=== PATIENT | female | born 1935 | race Caucasian/White ===

== ENCOUNTER 2018-12-29 00:23 | Inpatient (IN) | payer MEDICARE, MEDICAID ==
[~2018-12-29] VITALS: Ht 160 cm; Wt 52.8 kg
[2018-12-29] MEDS ORDERED: ACETAMINOPHEN 325 MG TABLET PO PRN (00:30)
[2018-12-29] MEDS ORDERED: BLOOD SUGAR DIAGNOSTIC 1 EACH STRIP VI ONE ×2 (00:30→06:00)
[2018-12-29] MEDS ORDERED: LORAZEPAM 0.5 MG TABLET PO PRN (00:30)
[2018-12-29] MEDS ORDERED: MAG HYDROX/AL HYDROX/SIMETH 30 ML LIQUID UDC PO PRN (00:30)
[2018-12-29] MEDS ORDERED: MAGNESIUM HYDROXIDE 30 ML LIQUID UDC PO PRN ×2 (00:30→06:00)
[2018-12-29] MEDS ORDERED: TEMAZEPAM 7.5 MG CAPSULE PO PRN (00:30)
[2018-12-29 01:03] VITALS: BP 105/86
[2018-12-29] MEDS ORDERED: SERT50TA PO (02:03)
[2018-12-29] MEDS ORDERED: ATOR40TA PO (02:03)
[2018-12-29] MEDS ORDERED: METF-440 PO (02:03)
[2018-12-29] MEDS ORDERED: CALC-555 PO (02:03)
[2018-12-29] MEDS ORDERED: FLUO10CA26 PO (02:03)
[2018-12-29] MEDS ORDERED: CALC1TAB90 PO (02:03)
[2018-12-29] MEDS ORDERED: GABA-532 PO (02:03)
[2018-12-29] MEDS ORDERED: POLY17PO4 PO (02:03)
[2018-12-29] MEDS ORDERED: AMLO5TAB9 PO (02:03)
[2018-12-29] MEDS ORDERED: MELA3TAB PO (02:03)
[2018-12-29] MEDS ORDERED: INSU100V28 (02:03)
[2018-12-29] MEDS ORDERED: FAMO20TA8 PO (02:03)
[2018-12-29 07:30] VITALS: BP 154/79
[2018-12-29 07:34] LABS: BASOPHILS # (AUTO) 0.1 K/uL (0.0-8.0); BASOPHILS % (AUTO) 0.8 % (0.0-2.0); EOSINOPHILS # (AUTO) 0.1 K/uL (0.0-0.7); EOSINOPHILS % (AUTO) 1.6 % (0.0-7.0); HEMATOCRIT 36.3 % (31.2-41.9); HEMOGLOBIN 12.4 g/dL (10.9-14.3); LYMPHOCYTES # (AUTO) 2.8 K/uL (20.0-40.0); LYMPHOCYTES % (AUTO) 32.5 % (20.5-51.5); MEAN CORPUSCULAR HEMOGLOBIN 30.1 uug (24.7-32.8); MEAN CORPUSCULAR HGB CONC 34 g/dL (32.3-35.6); MEAN CORPUSCULAR VOLUME 88.2 fL (75.5-95.3); MONOCYTES # (AUTO) 0.6 K/uL (2.0-10.0); MONOCYTES % (AUTO) 7.6 % (0.0-11.0); NEUTROPHILS # (AUTO) 4.9 K/uL (1.8-8.9); NEUTROPHILS % (AUTO) 57.5 % (38.5-71.5); PLATELET COUNT (AUTO) 202 K/uL (179-408); RED BLOOD CELL COUNT(AUTO) 4.11 MIL/uL (3.63-4.92); WHITE BLOOD COUNT (AUTO) 8.5 K/uL (3.8-11.8)
--- NOTE | 2018-12-29 07:38 | NUR ---
GPS/NSG ADMISSION NOTE Patient admitted on a 5150 for grave disability. Transferred to our care from [facility]. Originally from [facility]. According to the hold she was exhibiting increased confusion, disorientation and agitation. Upon admission patient was alert to name only. Required continuos redirection, no behaviors apparent. Psychiatrist and physician notified. Advisement provided, patient right's handbook given. plan of care initiated, monitor for safety, medication reconciliation pending and endorsed to oncoming nurse.
[2018-12-29 07:46] LABS: ALANINE AMINOTRANSFERASE 23 U/L (14-59); ALKALINE PHOSPHATASE 113 U/L (50-136); ASPARTATE AMINOTRANSFERASE 23 U/L (15-37); BILIRUBIN,TOTAL 0.8 mg/dL (0.2-1.0); CARBON DIOXIDE 27 mmol/L (21-32); CHLORIDE 105 mmol/L (98-107); CREATININE 0.8 mg/dL (0.6-1.3); GLUCOSE 120 mg/dL (74-106); POTASSIUM 3.3 mmol/L (3.5-5.1); TOTAL PROTEIN, SERUM 7.6 g/dL (6.4-8.2); UREA NITROGEN, BLOOD 20 mg/dL (7-18)
[2018-12-29] MEDS: MAG HYDROX/AL HYDROX/SIMETH 30 ML LIQUID UDC PO PRN (09:40)
[2018-12-29] MEDS ORDERED: VITAMIN D3 PO PRN (10:30)
[2018-12-29] MEDS ORDERED: MELATONIN 3 MG TABLET PO PRN (10:30)
[2018-12-29] MEDS ORDERED: CALCIUM CARBONATE PO PRN (10:30)
[2018-12-29] MEDS ORDERED: [UNRECOGNIZED DRUG - OTHER] PO PRN (10:30)
[2018-12-29] MEDS ORDERED: DEXTROSE 50% 50 ML DISP.SYRIN IV PRN (11:00)
[2018-12-29] MEDS ORDERED: POTASSIUM CHLORIDE 20 MEQ TAB.PRT.SR PO ONE (11:15)
[2018-12-29] MEDS: BLOOD SUGAR DIAGNOSTIC 1 EACH STRIP VI SCH ×3 (11:58→21:36)
[2018-12-29] MEDS: CALCIUM CARBONATE 500 MG TAB.CHEW PO PRN (12:06)
[2018-12-29] MEDS: ACETAMINOPHEN 325 MG TABLET PO PRN (13:13)
--- NOTE | 2018-12-29 14:00 | NUR ---
Patient complained of abdominal pain/cramps. Medications given, pain still persists. Anni RODRIGUEZ made aware NNO will continue to monitor closely.
[2018-12-29] MEDS: LORAZEPAM 0.5 MG TABLET PO PRN (14:24)
[2018-12-29 16:00] VITALS: BP 146/71
--- NOTE | 2018-12-29 16:46 | NUR ---
Initial discharge plan: Pt resides at [address] [id number]; [phone]. Per pt, she would like to return home after discharge but is worried about possible eviction from her apartment due to having unauthorized tenants living with her. Pt is open to exploring other discharge options if necessary. SW will speak with pt, family, and MD regarding appropriate discharge plans. SW will form a safe and proper discharge plan.
--- NOTE | 2018-12-29 17:00 | NUR ---
Patient noted to be anxious, keeps on pacing back and forth at nurses station, administered ativan PRN @ 1424. At 1500 patient in room, reassessed patient's condition. remains in stable condition. denies abdominal pain, will continue to monitor closely.
[2018-12-29] MEDS: METFORMIN HCL 500 MG TABLET PO SCH (17:17)
[2018-12-29] MEDS: FAMOTIDINE 20 MG TABLET PO SCH (17:17)
[2018-12-29] MEDS: INSULIN REGULAR, HUMAN 300 UNIT/3 ML VIAL SQ PRN (17:21)
[2018-12-29] MEDS: CALCIUM CARB/VITAMIN D 500MG-200UNITS TABLET PO SCH (17:23)
[2018-12-29] MEDS: SERTRALINE HCL 50 MG TABLET PO SCH (19:04)
[2018-12-29 19:22] LABS: *BILIRUBIN,URIN NEGATIVE (NEGATIVE); *CLARITY,URINE CLEAR (CLEAR); *COLOR,URINE YELLOW (YELLOW); *KETONES,URINE NEGATIVE (NEGATIVE); *UROBILINOGEN,URINE 0.2 E.U./dl (NORMAL); LEUKOCYTE ESTERASE ,URINE 1+ (NEGATIVE); NITRITE, URINE NEGATIVE (NEGATIVE); PH,URINE 6.5 (5.0-8.0); UGLUCOSE NEGATIVE (NEGATIVE)
[2018-12-29 19:24] LABS: *BLOOD, URINE TRACE (NEGATIVE)
[2018-12-29 19:35] LABS: BACTERIA,URINE FEW /HPF (NONE SEEN); RBC,URINE 0-3 /HPF (0-3); SQUAMOUS EPITHELIAL CELL,UR MODERATE /HPF (NONE SEEN)
[2018-12-29 20:20] VITALS: BP 150/66
[2018-12-29] MEDS: ATORVASTATIN 40 MG TABLET PO SCH (21:35)
[2018-12-29] MEDS: CEphaleXIN 500 MG CAPSULE PO SCH (21:35)
[2018-12-29] MEDS: TEMAZEPAM 7.5 MG CAPSULE PO PRN (21:35)
[2018-12-30] MEDS: CEphaleXIN 500 MG CAPSULE PO SCH ×3 (06:50→20:57)
[2018-12-30] MEDS: BLOOD SUGAR DIAGNOSTIC 1 EACH STRIP VI SCH ×4 (06:50→21:08)
[2018-12-30 07:30] VITALS: BP 145/67
[2018-12-30] MEDS: FAMOTIDINE 20 MG TABLET PO SCH ×2 (08:43→16:57)
[2018-12-30] MEDS: AMLODIPINE 5 MG TABLET PO SCH (08:44)
[2018-12-30] MEDS: MIRALAX 17 GM POWD.PACK PO SCH (08:44)
[2018-12-30] MEDS: METFORMIN HCL 500 MG TABLET PO SCH ×2 (08:44→18:08)
[2018-12-30] MEDS: ACETAMINOPHEN 325 MG TABLET PO PRN (11:48)
[2018-12-30] MEDS: INSULIN REGULAR, HUMAN 300 UNIT/3 ML VIAL SQ PRN ×2 (11:49→21:21)
--- NOTE | 2018-12-30 13:44 | NUR ---
SW callled next of kin and spoke with pt's frbvatro-gd-woy, Anne-Marie Concepcion [[phone]] and pt's son Teddy Sarabia [[phone]] regarding initial discharge planning for pt. Both next of kin desire for pt to return to [facility] jail facility [place] [address] [place] [address]; [phone]. DANELLE called jail facility to ask if patient will be admitted back after discharging from [facility], however the Admission Coordinator was not in today and will return on 01/03/19. SW will call back again on Wednesday to follow up with the facility's admission coordinator.
[2018-12-30 16:00] VITALS: BP 136/62
[2018-12-30] MEDS: CALCIUM CARB/VITAMIN D 500MG-200UNITS TABLET PO SCH (16:56)
[2018-12-30] MEDS: SERTRALINE HCL 50 MG TABLET PO SCH (16:57)
[2018-12-30] MEDS: ATORVASTATIN 40 MG TABLET PO SCH (20:57)
[2018-12-30] MEDS: TEMAZEPAM 7.5 MG CAPSULE PO PRN (21:08)
[2018-12-30 21:19] VITALS: BP 129/61
--- NOTE | 2018-12-30 21:20 | NUR ---
received to care, lying in bed, pleasant upon approach. denies SI, or any distress. PRN restoril given for insomnia, at pts request. as of 2119, she remains awake, in bed. no distress noted.
--- NOTE | 2018-12-30 21:24 | NUR ---
pt transferred to 3 rd floor GPS overflow, via w/c, with receiving nurse, and sitter, present, for transfer. pt left calm, and in no distress.
--- NOTE | 2018-12-30 21:30 | NUR ---
PATIENT TX FROM 1ST FLOOR. PATIENT IS A/O X2. PLEASANT AND APPROPRIATE WHEN APPROACHED. SITTER AT BEDSIDE FOR SAFETY. BED ALARM ON. ALL NEEDS ATTENDED. WILL CONTINUE TO MONITOR AND ASSESS.
[2018-12-30] MEDS: LORAZEPAM 0.5 MG TABLET PO PRN (22:26)
--- NOTE | 2018-12-30 22:30 | NUR ---
RESTORIL INEFFECTIVE. PATIENT GIVEN ATIVAN 0.5MG PO PRN. SITTER AT BEDSIDE. BED ALARM ON. ALL NEEDS ATTENDED. WILL CONTINUE TO MONITOR AND ASSESS.
[2018-12-31] MEDS: CEphaleXIN 500 MG CAPSULE PO SCH ×3 (05:54→21:17)
--- NOTE | 2018-12-31 05:57 | NUR ---
PATIENT ASLEEP IN BED. EASILY AROUSABLE. SLEPT 7 HOURS. BED ALARM ON. ALL NEEDS ATTENDED. WILL CONTINUE TO MONITOR AND ASSESS.
[2018-12-31] MEDS: ACETAMINOPHEN 325 MG TABLET PO PRN (06:27)
--- NOTE | 2018-12-31 06:27 | NUR ---
PATIENT AWAKE, RESTING IN BED. A/O X2-3. VERY PLEASANT WITH STAFF. C/O MILD PAIN IN LOWER BACK. PATIENT GIVEN TYLENOL 650MG PO PRN. SITTER AT BEDSIDE. BED ALARM ON. ALL NEEDS ATTENDED. WILL CONTINUE TO MONITOR AND ASSESS.
[2018-12-31] MEDS: BLOOD SUGAR DIAGNOSTIC 1 EACH STRIP VI SCH ×4 (06:54→21:17)
[2018-12-31 08:00] VITALS: BP 151/73
[2018-12-31] MEDS: AMLODIPINE 5 MG TABLET PO SCH (08:20)
[2018-12-31] MEDS: METFORMIN HCL 500 MG TABLET PO SCH ×2 (08:20→17:01)
[2018-12-31] MEDS: FAMOTIDINE 20 MG TABLET PO SCH ×2 (08:20→16:21)
[2018-12-31] MEDS: MIRALAX 17 GM POWD.PACK PO SCH (08:21)
[2018-12-31] MEDS: INSULIN REGULAR, HUMAN 300 UNIT/3 ML VIAL SQ PRN ×2 (11:49→21:20)
[2018-12-31 14:37] VITALS: BP 123/55
[2018-12-31] MEDS: SERTRALINE HCL 50 MG TABLET PO SCH (16:21)
[2018-12-31] MEDS: CALCIUM CARB/VITAMIN D 500MG-200UNITS TABLET PO SCH (16:21)
--- NOTE | 2018-12-31 19:40 | NUR ---
Received patient awake, sitting up in bed. No complaints at the moment. Patient is ekaterina and engages in appropriate conversation. Noted with 1:1 sitter at bedside for safety. Will continue to monitor for any recurrence of severe anxiety or agitation. Bed kept in low position, locked, side rails up x 2 for safety.
[2018-12-31 19:48] VITALS: BP 126/59
[2018-12-31] MEDS: ATORVASTATIN 40 MG TABLET PO SCH (21:17)
[2018-12-31] MEDS: TEMAZEPAM 7.5 MG CAPSULE PO PRN (21:18)
--- NOTE | 2019-01-01 05:45 | NUR ---
Patient slept well throughout the night, no distress noted.Still with sitter at bedside for safety. No episode of severe anxiety or agitation noted. Attended all needs. Ensured safety and comfort.
[2019-01-01] MEDS: CEphaleXIN 500 MG CAPSULE PO SCH ×3 (06:08→21:27)
[2019-01-01] MEDS: BLOOD SUGAR DIAGNOSTIC 1 EACH STRIP VI SCH ×4 (06:46→20:30)
[2019-01-01 07:55] VITALS: BP 115/59
[2019-01-01] MEDS: METFORMIN HCL 500 MG TABLET PO SCH ×2 (08:05→17:38)
[2019-01-01] MEDS: AMLODIPINE 5 MG TABLET PO SCH (08:06)
[2019-01-01] MEDS: FAMOTIDINE 20 MG TABLET PO SCH ×2 (08:06→16:06)
[2019-01-01] MEDS: MIRALAX 17 GM POWD.PACK PO SCH (08:06)
[2019-01-01] MEDS: CALCIUM CARBONATE 500 MG TAB.CHEW PO PRN ×2 (10:24→21:41)
[2019-01-01] MEDS: MAG HYDROX/AL HYDROX/SIMETH 30 ML LIQUID UDC PO PRN ×2 (10:24→20:20)
[2019-01-01] MEDS: INSULIN REGULAR, HUMAN 300 UNIT/3 ML VIAL SQ PRN ×2 (11:04→20:39)
[2019-01-01] MEDS: ACETAMINOPHEN 325 MG TABLET PO PRN (13:54)
[2019-01-01 15:54] VITALS: BP 116/47
[2019-01-01] MEDS: CALCIUM CARB/VITAMIN D 500MG-200UNITS TABLET PO SCH (16:06)
[2019-01-01] MEDS: SERTRALINE HCL 50 MG TABLET PO SCH (16:07)
--- NOTE | 2019-01-01 20:20 | NUR ---
PATIENT AWAKE, SITTING IN BED. A/O X2, BUT HAS FREQUENT PERIODS OF CONFUSION/DISORIENTED, BUT EASY TO RE-DIRECT. PLEASANT WHEN APPROACHED. VSS. PATIENT C/O OF STOMACH ACHE. GIVEN MYLANTA PRN. SITTER AT BEDSIDE FOR SAFETY. ALL NEEDS ATTENDED. WILL CONTINUE TO MONITOR AND ASSESS.
[2019-01-01] MEDS: ATORVASTATIN 40 MG TABLET PO SCH (20:21)
[2019-01-01 20:51] VITALS: BP 138/51
[2019-01-01] MEDS: LORAZEPAM 0.5 MG TABLET PO PRN (21:27)
--- NOTE | 2019-01-01 21:30 | NUR ---
PATIENT AWAKE, GIVEN ATIVAN 0.5MG PO PRN FOR ANXIETY.
--- NOTE | 2019-01-01 21:40 | NUR ---
PATIENT AWAKE. C/O UPSET STOMACH AND ASKING FOR TUMS. GIVEN 1 TAB ORDERED PRN. PATIENT STATED DISCOMFORT IS A LITTLE BETTER BUT STILL CRAMPING FEELING. WILL CONTINUE TO MONITOR.
[2019-01-01] MEDS: TEMAZEPAM 7.5 MG CAPSULE PO PRN (22:19)
--- NOTE | 2019-01-01 22:20 | NUR ---
PATIENT DENIES PAIN/DISCOMFORT AT THIS TIME. GIVEN RESTORIL 7.5MG PO PRN FOR SLEEP. SITTER AT BEDSIDE. WILL CONTINUE TO MONITOR AND ASSESS.
--- NOTE | 2019-01-02 | NUR ---
PATIENT ASLEEP IN BED. SITTER AT BEDSIDE. NO RESP. DISTRESS NOTED, BED ALARM ON. WILL CONTINUE TO MONITOR AND ASSESS.
[2019-01-02] MEDS: CEphaleXIN 500 MG CAPSULE PO SCH ×3 (06:11→21:00)
[2019-01-02] MEDS: BLOOD SUGAR DIAGNOSTIC 1 EACH STRIP VI SCH ×4 (06:30→20:38)
[2019-01-02 08:00] VITALS: BP 129/61
[2019-01-02] MEDS: AMLODIPINE 5 MG TABLET PO SCH (08:32)
[2019-01-02] MEDS: METFORMIN HCL 500 MG TABLET PO SCH ×2 (08:32→17:02)
[2019-01-02] MEDS: FAMOTIDINE 20 MG TABLET PO SCH ×2 (08:33→17:02)
[2019-01-02] MEDS: MIRALAX 17 GM POWD.PACK PO SCH (08:33)
--- NOTE | 2019-01-02 08:46 | NUR ---
Patient AO3, no distress, SITTER AT BEDSIDE. Safety reinforced Denies, SI or DS or DO BED ALARM ON. WILL CONTINUE TO MONITOR AND ASSESS.
[2019-01-02] MEDS: CALCIUM CARBONATE 500 MG TAB.CHEW PO PRN ×2 (09:51→16:31)
[2019-01-02] MEDS: INSULIN REGULAR, HUMAN 300 UNIT/3 ML VIAL SQ PRN ×2 (11:50→20:37)
[2019-01-02] MEDS: ACETAMINOPHEN 325 MG TABLET PO PRN (12:15)
[2019-01-02] MEDS: CALCIUM CARB/VITAMIN D 500MG-200UNITS TABLET PO SCH (17:02)
[2019-01-02] MEDS: SERTRALINE HCL 50 MG TABLET PO SCH (17:02)
--- NOTE | 2019-01-02 17:55 | NUR ---
Patient AO3, NO DISTRESS THIS SHIFT, COMPLAINED OF STOMACH PAIN AND TUMS , TYLENOL WAS GIVEN, SITTER AT BEDSIDE. SAFETY MAINTAINED THIS SHIFT pATIENT Denies, SI or DS or DO BED ALARM ON.
--- NOTE | 2019-01-02 19:25 | NUR ---
RECEIVED PT AWAKE , ALERT AND ORIENTEDX3. SITTER AT BEDSIDE. PT SHOWS NO SIGNS OF ACUTE DISTRESS.PT COMPLAINT OF STOMACH PAIN. SAFETY AND COMFORT PROVIDED. WILL CONTINUE TO MONITOR.
[2019-01-02 20:15] VITALS: BP 136/63
[2019-01-02] MEDS: ATORVASTATIN 40 MG TABLET PO SCH (20:31)
[2019-01-02] MEDS: MAG HYDROX/AL HYDROX/SIMETH 30 ML LIQUID UDC PO PRN (23:10)
[2019-01-02] MEDS: TEMAZEPAM 7.5 MG CAPSULE PO PRN (23:20)
[2019-01-03] MEDS: CEphaleXIN 500 MG CAPSULE PO SCH (05:58)
--- NOTE | 2019-01-03 06:28 | NUR ---
PT SLEPT 8 HOURS.. PT SHOWS NO SIGNS OF ACUTE DISTRESS.PT COMPLIANT WITH CARE.SITTER AT BEDSIDE. PT GIVEN PRN MEDICATIONS FOR STOMACH PAIN. SLEEPING MEDICATION GIVEN PER PT REQUEST. SITTER AT BEDSIDE. PRESCRIBED MEDICATION GIVEN AND PT TOLERATED IT WELL. SAFETY AND COMFORT PROVIDED. ALL NEEDS ARE MET. WILL ENDORSE TO INCOMING NURSE.
[2019-01-03] MEDS: BLOOD SUGAR DIAGNOSTIC 1 EACH STRIP VI SCH ×4 (06:32→21:24)
--- NOTE | 2019-01-03 07:45 | NUR ---
RECEIVED PT AWAKE , ALERT AND ORIENTEDX3. SITTER AT BEDSIDE. PT SHOWS NO SIGNS OF ACUTE DISTRESS OR SOB. SAFETY AND COMFORT PROVIDED. CALL LIGHT WITHIN REACH. BED ON LOWEST POSITION. WILL CONTINUE TO MONITOR.
[2019-01-03] MEDS: MIRALAX 17 GM POWD.PACK PO SCH (10:08)
[2019-01-03] MEDS: ACETAMINOPHEN 325 MG TABLET PO PRN (10:08)
[2019-01-03] MEDS: AMLODIPINE 5 MG TABLET PO SCH (10:09)
[2019-01-03] MEDS: FAMOTIDINE 20 MG TABLET PO SCH ×2 (10:09→17:40)
[2019-01-03] MEDS: METFORMIN HCL 500 MG TABLET PO SCH ×2 (10:09→17:40)
[2019-01-03 11:30] VITALS: BP 132/64
[2019-01-03] MEDS: MAG HYDROX/AL HYDROX/SIMETH 30 ML LIQUID UDC PO PRN (11:49)
--- NOTE | 2019-01-03 12:00 | NUR ---
PT ALERT AND ORIENTED X 3. SITTER AT BEDSIDE. PT COMPLAINS OF UPSET STOMACH. PRN MEDICATION GIVEN. SHOWS NO SIGNS OF ACUTE DISTRESS OR SOB. PT DENIES SUICIDAL IDEATION OR INTENT. SAFETY AND COMFORT PROVIDED. CALL LIGHT WITHIN REACH. BED ON LOWEST POSITION. WILL CONTINUE TO MONITOR.
[2019-01-03 15:26] VITALS: BP 122/58
[2019-01-03] MEDS: CALCIUM CARB/VITAMIN D 500MG-200UNITS TABLET PO SCH (17:40)
[2019-01-03] MEDS: LORAZEPAM 0.5 MG TABLET PO PRN (17:40)
[2019-01-03] MEDS: SERTRALINE HCL 50 MG TABLET PO SCH (17:41)
--- NOTE | 2019-01-03 18:00 | NUR ---
PT ALERT AND ORIENTEDX3. SITTER AT BEDSIDE. PT SHOWS NO SIGNS OF ACUTE DISTRESS OR SOB. SAFETY AND COMFORT PROVIDED. CALL LIGHT WITHIN REACH. BED ON LOWEST POSITION. WILL CONTINUE TO MONITOR
--- NOTE | 2019-01-03 19:00 | NUR ---
PATIENT RECEIVED ALERT AND ORIENTEDX3. SITTER AT BEDSIDE. PT SHOWS NO SIGNS OF ACUTE DISTRESS OR SOB. SAFETY AND COMFORT MEASURES PROVIDED. BED ON LOWEST POSITION AND LOCKED. PATIENT IS COOPERATIVE AND APPROPRIATE AT THIS TIME. WILL CONTINUE TO MONITOR.
[2019-01-03 20:00] VITALS: BP 129/56
[2019-01-03] MEDS: ATORVASTATIN 40 MG TABLET PO SCH (21:24)
[2019-01-03] MEDS: INSULIN REGULAR, HUMAN 300 UNIT/3 ML VIAL SQ PRN (21:49)
[2019-01-03] MEDS: TEMAZEPAM 7.5 MG CAPSULE PO PRN (23:26)
[2019-01-04] MEDS: BLOOD SUGAR DIAGNOSTIC 1 EACH STRIP VI SCH ×5 (06:32→20:46)
--- NOTE | 2019-01-04 06:46 | NUR ---
patient slept 5 hours last night with sleep aid temazepam that was given per pt request of feeling restless. sitter on site . patient is appreciate and cooperative no signs or verbalization of suicidal ideation. safety check performed, endorsed to am shift, will continue to monitor.
--- NOTE | 2019-01-04 07:30 | NUR ---
Patient calm and comfortable laying in bed with no signs of distress; patient has 1:1 sitter; patient will continue to be monitored.
[2019-01-04 08:00] VITALS: BP 126/55
[2019-01-04] MEDS: METFORMIN HCL 500 MG TABLET PO SCH ×2 (08:50→17:52)
[2019-01-04] MEDS: AMLODIPINE 5 MG TABLET PO SCH (08:50)
[2019-01-04] MEDS: MIRALAX 17 GM POWD.PACK PO SCH (08:51)
[2019-01-04] MEDS: FAMOTIDINE 20 MG TABLET PO SCH ×2 (08:51→17:52)
[2019-01-04] MEDS: INSULIN REGULAR, HUMAN 300 UNIT/3 ML VIAL SQ PRN ×3 (12:00→20:48)
[2019-01-04 15:07] VITALS: BP 116/49
[2019-01-04] MEDS: MAG HYDROX/AL HYDROX/SIMETH 30 ML LIQUID UDC PO PRN (17:31)
[2019-01-04] MEDS: SERTRALINE HCL 50 MG TABLET PO SCH (17:52)
[2019-01-04] MEDS: CALCIUM CARB/VITAMIN D 500MG-200UNITS TABLET PO SCH (17:52)
--- NOTE | 2019-01-04 19:00 | NUR ---
PATIENT RECEIVED ALERT AND AWAKE IN BED WITH SITTER AT BEDSIDE. VERY COOPERATIVE . SAFETY CHECK DONE AND OBSERVED. NO SUICIDAL IDEATION VERBALIZED AT THIS TIME. WILL CONTINUE TO MONITOR.
--- NOTE | 2019-01-04 19:00 | NUR ---
Patient calm and cooperative with 1:1 sitter; no signs of distress ; patient vital signs stable ; medication compliant.
[2019-01-04 20:00] VITALS: BP 109/54
[2019-01-04] MEDS ORDERED: QUETIAPINE FUMARATE 25 MG TABLET PO SCH (20:00)
[2019-01-04] MEDS: ATORVASTATIN 40 MG TABLET PO SCH (20:40)
[2019-01-05] MEDS: BLOOD SUGAR DIAGNOSTIC 1 EACH STRIP VI SCH ×2 (06:30→12:36)
--- NOTE | 2019-01-05 07:36 | NUR ---
PATIENT SLEPT WELL, WITH 9 HOURS OF SLEEP, WITH SITTER AT BEDSIDE. . VERY COOPERATIVE . SAFTEY CHECK DONE AND OBSERVED. NO SUICIDAL IDEATION VERBALIZED AT THIS TIME. WILL CONTINUE TO MONITOR. ENDORSED TO AM SHIFT
[2019-01-05 08:00] VITALS: BP 118/50
--- NOTE | 2019-01-05 08:00 | NUR ---
Received pt. resting in bed with sitter at bedside. Pt. is calm and cooperative. Pt. denies any SOB, difficulty breathing. Pt. denies any pain or discomfort. Safety measures in place. Call light within reach. Will continue to monitor pt.
--- NOTE | 2019-01-05 08:23 | NUR ---
Patient will be discharged to [facility] [[address] [place] [address]; [phone]] via ambulance. Please arrange ambulance transportation for patient to picked up at 11:00AM. Spoke with Jacob at the facility who states they are ready to accept the patient today. Spoke with patient�s sister in law, Anne-Marie ([phone]) who is aware and agreeable with discharge plans. Patient is alert and oriented x2, denies suicidal or homicidal ideation, and aware and agreeable with discharge plans. Patient will follow-up at the facility with Dr. Lucio (Retort Press Operator) and Dr. Vo (Psychiatrist). Patient was provided additional mental health referrals to [facility] Crisis Line .
[2019-01-05 09:05] VITALS: BP 122/54
[2019-01-05] MEDS: MIRALAX 17 GM POWD.PACK PO SCH (09:05)
[2019-01-05] MEDS: METFORMIN HCL 500 MG TABLET PO SCH (09:05)
[2019-01-05] MEDS: FAMOTIDINE 20 MG TABLET PO SCH (09:05)
[2019-01-05] MEDS: AMLODIPINE 5 MG TABLET PO SCH (09:05)
[2019-01-05] MEDS: LORAZEPAM 0.5 MG TABLET PO PRN (12:34)
[2019-01-05] MEDS: INSULIN REGULAR, HUMAN 300 UNIT/3 ML VIAL SQ PRN (12:46)
--- NOTE | 2019-01-05 15:00 | NUR ---
Pt. nervous as to where she will be discharged to. Educated pt. on where she will be discharged to [facility]. Showed pt. photos of facility to ease pt.'s mind. Allowed pt. to talk to son on phone. PRN ativan given for anxiety. Pt. is more calm. Safety measures in place. Sitter at bedside. Will continue to monitor pt.
--- NOTE | 2019-01-05 15:26 | NUR ---
discharge papers printed and signed. Belongings list checked and signed. Photos taken and placed in charge. Report given to Taylor at [facility] . Ambulance picked up pt. Pt. in stable condition.
== END 2019-01-05 15:20 | DRG 885 ==
LOC: GPS 00:23 → GPSOV3 12-30 21:45
PROVIDERS: ADMIT Psychiatry & Neurology Psychosomatic Medicine; ATTEND Registered Nurse
DX: F33.2 Major depressive disorder, recurrent severe without psychotic features (principal); F01.50 Vascular dementia, unspecified severity, without behavioral disturbance, psychotic disturbance, mood disturbance, and anxiety; N39.0 Urinary tract infection, site not specified; E11.9 Type 2 diabetes mellitus without complications; Z79.4 Long term (current) use of insulin; E78.5 Hyperlipidemia, unspecified; E87.6 Hypokalemia; K21.9 Gastro-esophageal reflux disease without esophagitis; I10 Essential (primary) hypertension; R79.89 Other specified abnormal findings of blood chemistry
CPT/HCPCS: 36415; 85025; 87086; J1815

== ENCOUNTER 2019-03-13 19:21 | Inpatient (IN) | payer MEDICARE, OTHER ==
[~2019-03-13] VITALS: Ht 162.6 cm; Wt 58.1 kg
[~2019-03-13 19:21] MED LIST: AMLO5TAB9 PO; ATOR40TA PO; CALC-555 PO; CALC1TAB90 PO; FAMO20TA8 PO; INSU100V28; MELA3TAB63 PO; METF-440 PO; POLY17PO4 PO
[2019-03-13 19:53] LABS: BASOPHILS # (AUTO) 0.1 K/uL (0.0-8.0); BASOPHILS % (AUTO) 0.7 % (0.0-2.0); EOSINOPHILS # (AUTO) 0.2 K/uL (0.0-0.7); EOSINOPHILS % (AUTO) 1.7 % (0.0-7.0); HEMATOCRIT 39.2 % (31.2-41.9); HEMOGLOBIN 12.8 g/dL (10.9-14.3); LYMPHOCYTES # (AUTO) 3.1 K/uL (20.0-40.0); LYMPHOCYTES % (AUTO) 33.5 % (20.5-51.5); MEAN CORPUSCULAR HEMOGLOBIN 29.5 uug (24.7-32.8); MEAN CORPUSCULAR HGB CONC 33 g/dL (32.3-35.6); MEAN CORPUSCULAR VOLUME 90.4 fL (75.5-95.3); MONOCYTES # (AUTO) 0.6 K/uL (2.0-10.0); MONOCYTES % (AUTO) 6.4 % (0.0-11.0); NEUTROPHILS # (AUTO) 5.4 K/uL (1.8-8.9); NEUTROPHILS % (AUTO) 57.7 % (38.5-71.5); PLATELET COUNT (AUTO) 236 K/uL (179-408); RED BLOOD CELL COUNT(AUTO) 4.34 MIL/uL (3.63-4.92); WHITE BLOOD COUNT (AUTO) 9.3 K/uL (3.8-11.8)
[2019-03-13] MEDS ORDERED: MEMA5TAB PO (19:59)
[2019-03-13] MEDS ORDERED: MAG355OR18 PO (19:59)
[2019-03-13] MEDS ORDERED: SERT25TA PO (19:59)
[2019-03-13] MEDS ORDERED: ACET-2154 PO (19:59)
[2019-03-13] MEDS ORDERED: IBUP-1953 PO (19:59)
[2019-03-13] MEDS ORDERED: MAGN400O6 PO (19:59)
[2019-03-13] MEDS ORDERED: TRAM50TA2 PO (19:59)
[2019-03-13] MEDS ORDERED: POLY17PO4 PO (19:59)
[2019-03-13] MEDS ORDERED: NA P133E RC (19:59)
[2019-03-13] MEDS ORDERED: QUET25TA PO (19:59)
[2019-03-13 20:02] LABS: CARBON DIOXIDE 28 mmol/L (21-32); CHLORIDE 105 mmol/L (98-107); CREATININE 1.1 mg/dL (0.6-1.3); GLUCOSE 162 mg/dL (74-106); POTASSIUM 3.7 mmol/L (3.5-5.1); UREA NITROGEN, BLOOD 27 mg/dL (7-18)
[2019-03-13 20:07] LABS: ALANINE AMINOTRANSFERASE 27 U/L (14-59); ALKALINE PHOSPHATASE 171 U/L (50-136); ASPARTATE AMINOTRANSFERASE 24 U/L (15-37); BILIRUBIN,DIRECT 0.1 mg/dL (0.0-0.2); BILIRUBIN,TOTAL 0.5 mg/dL (0.2-1.0); TOTAL PROTEIN, SERUM 8.6 g/dL (6.4-8.2)
[2019-03-13 20:08] LABS: ACETAMINOPHEN < 2.0 ug/mL (10-30)
[2019-03-13 20:12] LABS: ETHANOL < 3 MG/DL (0-0)
[2019-03-13 20:15] LABS: THYROID STIMULATING HORMONE 1.019 mIU/mL (0.358-3.740)
[2019-03-13 20:45] VITALS: BP 154/71
[2019-03-13] MEDS ORDERED: LORAZEPAM 1 MG TABLET PO PRN (21:00)
[2019-03-13] MEDS ORDERED: MAG HYDROX/AL HYDROX/SIMETH 30 ML LIQUID UDC PO PRN ×2 (21:00→23:00)
[2019-03-13] MEDS ORDERED: MAGNESIUM HYDROXIDE 30 ML LIQUID UDC PO PRN ×2 (21:00→23:00)
[2019-03-13] MEDS ORDERED: TEMAZEPAM 7.5 MG CAPSULE PO PRN (21:00)
[2019-03-13] MEDS ORDERED: ACETAMINOPHEN 325 MG TABLET PO PRN (21:00)
[2019-03-13] MEDS ORDERED: BLOOD SUGAR DIAGNOSTIC 1 EACH STRIP VI ONE (21:00)
[2019-03-13 21:13] LABS: *BILIRUBIN,URIN NEGATIVE (NEGATIVE); *BLOOD, URINE NEGATIVE (NEGATIVE); *CLARITY,URINE CLEAR (CLEAR); *COLOR,URINE LIGHT YELLOW (YELLOW); *KETONES,URINE NEGATIVE (NEGATIVE); *UROBILINOGEN,URINE 0.2 E.U./dl (NORMAL); LEUKOCYTE ESTERASE ,URINE NEGATIVE (NEGATIVE); NITRITE, URINE NEGATIVE (NEGATIVE); UGLUCOSE NEGATIVE (NEGATIVE)
[2019-03-13] MEDS ORDERED: TRAMADOL HCL 50 MG TABLET PO PRN (23:00)
[2019-03-13] MEDS ORDERED: VITAMIN D3 PO PRN (23:00)
[2019-03-13] MEDS ORDERED: FLEET ENEMA 133 ML BOTTLE RC PRN (23:00)
[2019-03-13] MEDS ORDERED: DEXTROSE 50% 50 ML DISP.SYRIN IV PRN (23:00)
[2019-03-13] MEDS ORDERED: [UNRECOGNIZED DRUG - OTHER] PO PRN (23:00)
[2019-03-13] MEDS ORDERED: CALCIUM CARBONATE PO PRN (23:00)
[2019-03-14] MEDS: BLOOD SUGAR DIAGNOSTIC 1 EACH STRIP VI SCH ×4 (06:35→20:39)
[2019-03-14 07:30] VITALS: BP 145/60
[2019-03-14] MEDS ORDERED: CALCIUM CARBONATE 500 MG TAB.CHEW PO PRN (08:15)
[2019-03-14] MEDS: METFORMIN HCL 500 MG TABLET PO SCH ×2 (08:41→16:51)
[2019-03-14] MEDS: MIRALAX 17 GM POWD.PACK PO SCH (08:41)
[2019-03-14] MEDS: FAMOTIDINE 20 MG TABLET PO SCH ×2 (08:41→16:52)
[2019-03-14] MEDS: AMLODIPINE 5 MG TABLET PO SCH (08:42)
[2019-03-14 15:04] VITALS: BP 135/46
[2019-03-14] MEDS: OLANZAPINE 2.5 MG TABLET PO SCH (16:51)
[2019-03-14] MEDS: INSULIN REGULAR, HUMAN 300 UNIT/3 ML VIAL SQ PRN ×2 (16:51→20:29)
[2019-03-14] MEDS: CALCIUM CARB/VITAMIN D 500MG-200UNITS TABLET PO SCH (16:53)
[2019-03-14 20:05] VITALS: BP 130/64
[2019-03-14] MEDS: IBUPROFEN 400 MG TABLET PO PRN (20:22)
[2019-03-14] MEDS: ATORVASTATIN 40 MG TABLET PO SCH (20:39)
[2019-03-15] MEDS: BLOOD SUGAR DIAGNOSTIC 1 EACH STRIP VI SCH ×4 (06:32→21:35)
[2019-03-15 07:30] VITALS: BP 139/51
[2019-03-15] MEDS: MIRALAX 17 GM POWD.PACK PO SCH (09:00)
[2019-03-15] MEDS: AMLODIPINE 5 MG TABLET PO SCH (09:00)
[2019-03-15] MEDS: METFORMIN HCL 500 MG TABLET PO SCH ×2 (09:14→16:34)
[2019-03-15] MEDS: FAMOTIDINE 20 MG TABLET PO SCH ×2 (09:14→16:35)
[2019-03-15 16:00] VITALS: BP 140/56
[2019-03-15] MEDS: INSULIN REGULAR, HUMAN 300 UNIT/3 ML VIAL SQ PRN ×2 (16:22→21:40)
[2019-03-15] MEDS: CALCIUM CARB/VITAMIN D 500MG-200UNITS TABLET PO SCH (16:34)
[2019-03-15] MEDS: ACETAMINOPHEN 325 MG TABLET PO PRN (16:35)
[2019-03-15] MEDS: OLANZAPINE 2.5 MG TABLET PO SCH (16:35)
[2019-03-15 20:16] VITALS: BP 149/66
[2019-03-15] MEDS: ATORVASTATIN 40 MG TABLET PO SCH (21:21)
[2019-03-16] MEDS: BLOOD SUGAR DIAGNOSTIC 1 EACH STRIP VI SCH ×6 (06:51→20:35)
[2019-03-16 07:30] VITALS: BP 147/66
[2019-03-16] MEDS: METFORMIN HCL 500 MG TABLET PO SCH ×2 (09:49→17:34)
[2019-03-16] MEDS: AMLODIPINE 5 MG TABLET PO SCH (09:49)
[2019-03-16] MEDS: FAMOTIDINE 20 MG TABLET PO SCH ×2 (09:49→17:34)
[2019-03-16] MEDS: MIRALAX 17 GM POWD.PACK PO SCH (09:49)
[2019-03-16] MEDS: INSULIN REGULAR, HUMAN 300 UNIT/3 ML VIAL SQ PRN ×2 (12:03→20:37)
[2019-03-16 16:00] VITALS: BP 136/71
[2019-03-16] MEDS: CALCIUM CARB/VITAMIN D 500MG-200UNITS TABLET PO SCH (17:34)
[2019-03-16] MEDS: OLANZAPINE 2.5 MG TABLET PO SCH ×2 (17:34→18:39)
[2019-03-16] MEDS: IBUPROFEN 400 MG TABLET PO PRN (20:26)
[2019-03-16] MEDS: ATORVASTATIN 40 MG TABLET PO SCH (20:26)
[2019-03-16 20:30] VITALS: BP 141/73
[2019-03-16] MEDS: LORAZEPAM 0.5 MG TABLET PO PRN (21:10)
[2019-03-17] MEDS: BLOOD SUGAR DIAGNOSTIC 1 EACH STRIP VI SCH ×4 (06:27→20:34)
[2019-03-17] MEDS: METFORMIN HCL 500 MG TABLET PO SCH ×2 (09:11→17:25)
[2019-03-17] MEDS: FAMOTIDINE 20 MG TABLET PO SCH ×2 (09:11→17:25)
[2019-03-17] MEDS: MIRALAX 17 GM POWD.PACK PO SCH (09:11)
[2019-03-17] MEDS: AMLODIPINE 5 MG TABLET PO SCH (09:12)
[2019-03-17 10:27] VITALS: BP 141/64
[2019-03-17 16:28] VITALS: BP 136/65
[2019-03-17] MEDS: CALCIUM CARB/VITAMIN D 500MG-200UNITS TABLET PO SCH (17:26)
[2019-03-17] MEDS: OLANZAPINE 2.5 MG TABLET PO SCH ×2 (17:27→20:25)
[2019-03-17 20:13] VITALS: BP 156/73
[2019-03-17] MEDS: ATORVASTATIN 40 MG TABLET PO SCH (20:25)
[2019-03-17] MEDS: INSULIN REGULAR, HUMAN 300 UNIT/3 ML VIAL SQ PRN (20:37)
[2019-03-17] MEDS ORDERED: OLANZAPINE 2.5 MG TABLET PO SCH (21:00)
[2019-03-18] MEDS: BLOOD SUGAR DIAGNOSTIC 1 EACH STRIP VI SCH ×4 (06:41→20:14)
[2019-03-18 08:00] VITALS: BP 134/57
[2019-03-18] MEDS: MIRALAX 17 GM POWD.PACK PO SCH (08:24)
[2019-03-18] MEDS: AMLODIPINE 5 MG TABLET PO SCH (08:24)
[2019-03-18] MEDS: METFORMIN HCL 500 MG TABLET PO SCH ×2 (08:24→16:01)
[2019-03-18] MEDS: FAMOTIDINE 20 MG TABLET PO SCH ×2 (08:24→16:01)
[2019-03-18] MEDS: INSULIN REGULAR, HUMAN 300 UNIT/3 ML VIAL SQ PRN (11:15)
[2019-03-18 15:55] VITALS: BP 136/73
[2019-03-18] MEDS: CALCIUM CARB/VITAMIN D 500MG-200UNITS TABLET PO SCH (16:01)
[2019-03-18] MEDS: OLANZAPINE 2.5 MG TABLET PO SCH ×2 (16:01→20:13)
[2019-03-18 20:02] VITALS: BP 145/65
[2019-03-18] MEDS: ATORVASTATIN 40 MG TABLET PO SCH (20:12)
[2019-03-19] MEDS: BLOOD SUGAR DIAGNOSTIC 1 EACH STRIP VI SCH ×4 (06:32→20:42)
[2019-03-19 08:01] VITALS: BP 126/50
[2019-03-19] MEDS: AMLODIPINE 5 MG TABLET PO SCH (08:23)
[2019-03-19] MEDS: MIRALAX 17 GM POWD.PACK PO SCH (08:23)
[2019-03-19] MEDS: FAMOTIDINE 20 MG TABLET PO SCH ×2 (08:23→16:56)
[2019-03-19] MEDS: METFORMIN HCL 500 MG TABLET PO SCH ×2 (08:23→16:56)
[2019-03-19] MEDS: IBUPROFEN 400 MG TABLET PO PRN (11:22)
[2019-03-19] MEDS: INSULIN REGULAR, HUMAN 300 UNIT/3 ML VIAL SQ PRN ×2 (11:37→20:46)
[2019-03-19 16:06] VITALS: BP 124/59
[2019-03-19] MEDS: OLANZAPINE 2.5 MG TABLET PO SCH ×2 (16:56→20:37)
[2019-03-19] MEDS: CALCIUM CARB/VITAMIN D 500MG-200UNITS TABLET PO SCH (16:56)
[2019-03-19 20:00] VITALS: BP 132/70
[2019-03-19] MEDS: ATORVASTATIN 40 MG TABLET PO SCH (20:37)
[2019-03-20] MEDS: BLOOD SUGAR DIAGNOSTIC 1 EACH STRIP VI SCH ×4 (06:41→20:35)
[2019-03-20 07:30] VITALS: BP 165/85
[2019-03-20] MEDS: MIRALAX 17 GM POWD.PACK PO SCH (08:04)
[2019-03-20] MEDS: METFORMIN HCL 500 MG TABLET PO SCH ×2 (08:04→17:04)
[2019-03-20] MEDS: FAMOTIDINE 20 MG TABLET PO SCH ×2 (08:05→17:04)
[2019-03-20] MEDS: AMLODIPINE 5 MG TABLET PO SCH (08:05)
[2019-03-20] MEDS: LORAZEPAM 0.5 MG TABLET PO PRN (11:19)
[2019-03-20 15:53] VITALS: BP 127/66
[2019-03-20] MEDS: OLANZAPINE 2.5 MG TABLET PO SCH ×2 (17:04→20:04)
[2019-03-20] MEDS: CALCIUM CARB/VITAMIN D 500MG-200UNITS TABLET PO SCH (17:05)
[2019-03-20] MEDS: ATORVASTATIN 40 MG TABLET PO SCH (20:03)
[2019-03-20 20:14] VITALS: BP 119/55
[2019-03-20] MEDS: INSULIN REGULAR, HUMAN 300 UNIT/3 ML VIAL SQ PRN (20:36)
[2019-03-21] MEDS: BLOOD SUGAR DIAGNOSTIC 1 EACH STRIP VI SCH ×4 (06:21→20:33)
[2019-03-21] MEDS: AMLODIPINE 5 MG TABLET PO SCH (08:00)
[2019-03-21] MEDS: METFORMIN HCL 500 MG TABLET PO SCH ×2 (08:00→16:34)
[2019-03-21] MEDS: FAMOTIDINE 20 MG TABLET PO SCH ×2 (08:00→16:34)
[2019-03-21] MEDS: MIRALAX 17 GM POWD.PACK PO SCH (08:00)
[2019-03-21 08:30] VITALS: BP 140/68
[2019-03-21] MEDS: INSULIN REGULAR, HUMAN 300 UNIT/3 ML VIAL SQ PRN ×3 (10:27→20:37)
[2019-03-21] MEDS ORDERED: OLANZAPINE 2.5 MG TABLET PO PRN (12:00)
[2019-03-21 15:44] VITALS: BP 130/56
[2019-03-21] MEDS: ACETAMINOPHEN 325 MG TABLET PO PRN (16:02)
[2019-03-21] MEDS: CALCIUM CARB/VITAMIN D 500MG-200UNITS TABLET PO SCH (16:35)
[2019-03-21] MEDS ORDERED: risperiDONE-M 0.5 MG TAB.RAPDIS PO SCH (17:00)
[2019-03-21] MEDS: ATORVASTATIN 40 MG TABLET PO SCH (20:20)
[2019-03-21] MEDS: DIVALPROEX SPRINKLE 125 MG CAP.SPRINK PO SCH (20:20)
[2019-03-21 20:59] VITALS: BP 146/65
[2019-03-22] MEDS: BLOOD SUGAR DIAGNOSTIC 1 EACH STRIP VI SCH ×4 (06:09→20:37)
[2019-03-22 07:30] VITALS: BP 147/53
[2019-03-22] MEDS: METFORMIN HCL 500 MG TABLET PO SCH ×2 (09:03→16:41)
[2019-03-22] MEDS: MIRALAX 17 GM POWD.PACK PO SCH (09:03)
[2019-03-22] MEDS: LORAZEPAM 0.5 MG TABLET PO PRN (09:03)
[2019-03-22] MEDS: DIVALPROEX SPRINKLE 125 MG CAP.SPRINK PO SCH (09:03)
[2019-03-22] MEDS: AMLODIPINE 5 MG TABLET PO SCH (09:03)
[2019-03-22] MEDS: FAMOTIDINE 20 MG TABLET PO SCH ×2 (09:03→16:41)
[2019-03-22] MEDS: risperiDONE 0.25 MG TABLET PO SCH (12:14)
[2019-03-22 16:32] VITALS: BP 110/55
[2019-03-22] MEDS: CALCIUM CARB/VITAMIN D 500MG-200UNITS TABLET PO SCH (16:41)
[2019-03-22 20:00] VITALS: BP 137/62
[2019-03-22] MEDS ORDERED: risperiDONE-M 0.5 MG TAB.RAPDIS PO SCH (20:00)
[2019-03-22] MEDS: ATORVASTATIN 40 MG TABLET PO SCH (20:22)
[2019-03-22] MEDS: INSULIN REGULAR, HUMAN 300 UNIT/3 ML VIAL SQ PRN (20:38)
[2019-03-23] MEDS: BLOOD SUGAR DIAGNOSTIC 1 EACH STRIP VI SCH ×4 (06:11→20:10)
[2019-03-23 07:30] VITALS: BP 140/54
[2019-03-23] MEDS: MIRALAX 17 GM POWD.PACK PO SCH (09:35)
[2019-03-23] MEDS: FAMOTIDINE 20 MG TABLET PO SCH ×2 (09:36→16:51)
[2019-03-23] MEDS: risperiDONE 0.25 MG TABLET PO SCH (09:36)
[2019-03-23] MEDS: DIVALPROEX SPRINKLE 125 MG CAP.SPRINK PO SCH (09:36)
[2019-03-23] MEDS: AMLODIPINE 5 MG TABLET PO SCH (09:37)
[2019-03-23] MEDS: METFORMIN HCL 500 MG TABLET PO SCH ×2 (09:37→16:51)
[2019-03-23] MEDS: ACETAMINOPHEN 325 MG TABLET PO PRN (12:42)
[2019-03-23 16:00] VITALS: BP 133/68
[2019-03-23] MEDS: CALCIUM CARB/VITAMIN D 500MG-200UNITS TABLET PO SCH (16:51)
[2019-03-23] MEDS: ATORVASTATIN 40 MG TABLET PO SCH (20:02)
[2019-03-23] MEDS: risperiDONE-M 0.5 MG TAB.RAPDIS PO SCH (20:04)
[2019-03-23 20:19] VITALS: BP 163/83
[2019-03-23 21:05] VITALS: BP 134/79
[2019-03-24] MEDS: BLOOD SUGAR DIAGNOSTIC 1 EACH STRIP VI SCH ×4 (06:33→20:44)
[2019-03-24 07:30] VITALS: BP 147/81
[2019-03-24] MEDS: FAMOTIDINE 20 MG TABLET PO SCH ×2 (08:39→16:05)
[2019-03-24] MEDS: DIVALPROEX SPRINKLE 125 MG CAP.SPRINK PO SCH (08:39)
[2019-03-24] MEDS: METFORMIN HCL 500 MG TABLET PO SCH ×2 (08:39→16:05)
[2019-03-24] MEDS: AMLODIPINE 5 MG TABLET PO SCH (08:39)
[2019-03-24] MEDS: risperiDONE 0.25 MG TABLET PO SCH (08:40)
[2019-03-24] MEDS: MIRALAX 17 GM POWD.PACK PO SCH (08:40)
[2019-03-24] MEDS: ACETAMINOPHEN 325 MG TABLET PO PRN (14:28)
[2019-03-24 16:00] VITALS: BP 127/57
[2019-03-24] MEDS: CALCIUM CARB/VITAMIN D 500MG-200UNITS TABLET PO SCH (16:05)
[2019-03-24] MEDS: ATORVASTATIN 40 MG TABLET PO SCH (20:19)
[2019-03-24] MEDS: risperiDONE-M 0.5 MG TAB.RAPDIS PO SCH (20:20)
[2019-03-24] MEDS: INSULIN REGULAR, HUMAN 300 UNIT/3 ML VIAL SQ PRN (20:46)
[2019-03-24 21:23] VITALS: BP 142/65
[2019-03-25] MEDS: BLOOD SUGAR DIAGNOSTIC 1 EACH STRIP VI SCH ×4 (06:32→20:38)
[2019-03-25 07:30] VITALS: BP 115/59
[2019-03-25] MEDS: DIVALPROEX SPRINKLE 125 MG CAP.SPRINK PO SCH (08:26)
[2019-03-25] MEDS: MIRALAX 17 GM POWD.PACK PO SCH (08:26)
[2019-03-25] MEDS: METFORMIN HCL 500 MG TABLET PO SCH ×2 (08:26→16:51)
[2019-03-25] MEDS: FAMOTIDINE 20 MG TABLET PO SCH ×2 (08:26→16:51)
[2019-03-25] MEDS: AMLODIPINE 5 MG TABLET PO SCH (08:26)
[2019-03-25] MEDS: risperiDONE 0.25 MG TABLET PO SCH (08:26)
[2019-03-25] MEDS: INSULIN REGULAR, HUMAN 300 UNIT/3 ML VIAL SQ PRN ×2 (11:37→16:42)
[2019-03-25 16:09] VITALS: BP 100/50
[2019-03-25] MEDS: CALCIUM CARB/VITAMIN D 500MG-200UNITS TABLET PO SCH (16:51)
[2019-03-25 20:00] VITALS: BP 129/61
[2019-03-25] MEDS: risperiDONE-M 0.5 MG TAB.RAPDIS PO SCH (20:37)
[2019-03-25] MEDS: ATORVASTATIN 40 MG TABLET PO SCH (20:37)
[2019-03-26] MEDS: BLOOD SUGAR DIAGNOSTIC 1 EACH STRIP VI SCH ×4 (07:02→21:04)
[2019-03-26 07:30] VITALS: BP 108/50
[2019-03-26] MEDS: FAMOTIDINE 20 MG TABLET PO SCH ×2 (08:40→17:02)
[2019-03-26] MEDS: DIVALPROEX SPRINKLE 125 MG CAP.SPRINK PO SCH (08:40)
[2019-03-26] MEDS: risperiDONE 0.25 MG TABLET PO SCH (08:40)
[2019-03-26] MEDS: METFORMIN HCL 500 MG TABLET PO SCH ×2 (08:41→17:02)
[2019-03-26] MEDS: MIRALAX 17 GM POWD.PACK PO SCH (08:41)
[2019-03-26] MEDS: AMLODIPINE 5 MG TABLET PO SCH (08:41)
[2019-03-26] MEDS: IBUPROFEN 400 MG TABLET PO PRN (10:33)
[2019-03-26 16:06] VITALS: BP 122/57
[2019-03-26] MEDS: CALCIUM CARB/VITAMIN D 500MG-200UNITS TABLET PO SCH (17:04)
[2019-03-26] MEDS: risperiDONE-M 0.5 MG TAB.RAPDIS PO SCH (20:30)
[2019-03-26] MEDS: ATORVASTATIN 40 MG TABLET PO SCH (20:30)
[2019-03-26 20:32] VITALS: BP 118/58
[2019-03-27] MEDS: BLOOD SUGAR DIAGNOSTIC 1 EACH STRIP VI SCH ×2 (06:43→12:08)
[2019-03-27 07:30] VITALS: BP 109/49
[2019-03-27 08:29] VITALS: BP 110/65
[2019-03-27] MEDS: AMLODIPINE 5 MG TABLET PO SCH (08:29)
[2019-03-27] MEDS: FAMOTIDINE 20 MG TABLET PO SCH (08:29)
[2019-03-27] MEDS: METFORMIN HCL 500 MG TABLET PO SCH (08:29)
[2019-03-27] MEDS: DIVALPROEX SPRINKLE 125 MG CAP.SPRINK PO SCH (08:30)
[2019-03-27] MEDS: risperiDONE 0.25 MG TABLET PO SCH (08:30)
[2019-03-27] MEDS: MIRALAX 17 GM POWD.PACK PO SCH (08:30)
== END 2019-03-27 14:00 | DRG 885 ==
LOC: ER 19:29 → GPS 20:33
PROVIDERS: ADMIT Psychiatry & Neurology Psychosomatic Medicine; ATTEND Internal Medicine
DX: F25.0 Schizoaffective disorder, bipolar type (principal); F01.50 Vascular dementia, unspecified severity, without behavioral disturbance, psychotic disturbance, mood disturbance, and anxiety; G93.40 Encephalopathy, unspecified; K21.9 Gastro-esophageal reflux disease without esophagitis; E78.5 Hyperlipidemia, unspecified; F43.10 Post-traumatic stress disorder, unspecified; R26.9 Unspecified abnormalities of gait and mobility; M19.90 Unspecified osteoarthritis, unspecified site; I10 Essential (primary) hypertension; G89.29 Other chronic pain; M54.9 Dorsalgia, unspecified; E11.9 Type 2 diabetes mellitus without complications; Z79.84 Long term (current) use of oral hypoglycemic drugs; Z79.899 Other long term (current) drug therapy
CPT/HCPCS: 36415; 70030-TC; 80164; 84443; 85025; 87086; 93005; A4663; G0480; G0480-TC; J1815